=== PATIENT | female | born 1955 | race Caucasian/White ===

== ENCOUNTER 2022-07-21 09:12 | Outpatient (CLI) | payer OTHER ==
[~2022-07-21 09:12] MED LIST: CREST PO; GLUMETZA500 MG PO; OMEGA-31000 MG PO; ZIAC PO
== END 2022-07-21 09:13 | disposition home or self-care (01) ==
LOC: LAB 09:12
PROVIDERS: ATTEND Orthopaedic Surgery
DX: M06.4 Inflammatory polyarthropathy (principal)